=== PATIENT | male | born 1980 | race Two or more races ===

== ENCOUNTER 2018-06-22 14:26 | Emergency (ER) | payer SELFPAY ==
[2018-06-22] MEDS ORDERED: IBUPROFEN 600 MG TAB PO ONE (15:19)
--- NOTE | 2018-06-22 15:19 | EDPHY ---
H & P Stated Complaint: ongoing uti pain, seen at [facility] yesterday Time Seen by Provider: 06/22/18 15:53 HPI/ROS: CHIEF COMPLAINT: "I have pain in my penis" HISTORY OF PRESENT ILLNESS: The patient is a 38 y/o male complaining of penile pain and aching lower abdominal pain for the last few days. He went to [facility] for these symptoms yesterday and they treated him for possible prostatitis with a 10-day course of Bactrim, which he has been on for about 24 hours. They took a urine sample, but he has not received those results yet. They did not perform a rectal exam. His symptoms feel worse today and he has associated itchiness. He is able to urinate, but describes concurrent urinary urgency and hesitancy. He denies fever, vomiting, back pain, penile drainage, penile sores. No history of STDs. He is currently sexually active with his and does not use protection. He denies any new sexual partners. REVIEW OF SYSTEMS: A ten system review of systems was performed and is negative with the exception of the items mentioned in the HPI. Past medical history: Appendicitis Past surgical history: Appendectomy Family history: Noncontributory Social history: Lives in [place]. Employed. . General Appearance: Alert. Vital signs reviewed. Eyes: Pupils equal and round, no conjunctival injection, no discharge. Anicteric. ENT, Mouth: Mucous membranes are moist, no oropharyngeal erythema or edema. Neck: No lymphadenopathy, supple. Respiratory: Lungs are clear to auscultation; no wheezes, rales, or rhonchi. Cardiovascular: Regular rate and rhythm; no murmur, rub, or gallop. Gastrointestinal: Abdomen is soft and nontender, no masses or organomegaly. No inguinal hernia. : Normal uncircumcised male. Normal bilaterally descended testes, nontender. No drainage, lesions, erythema. Skin: Warm and dry, no rashes on exposed skin, normal color. Back: Nontender to palpation over the thoracolumbar spine. No CVAT. Extremities: No lower extremity edema, no calf tenderness or swelling. Neurological: Alert and oriented. Moving all four extremities easily and equally. Psychiatric: Normal affect. - Personal History Current Tetanus Diphtheria and Acellular Pertussis (TDAP): Yes - Medical/Surgical History Other PMH: denies - Social History Smoking Status: Never smoked Constitutional: Initial Vital Signs Temperature (C) 37.1 C 06/22/18 14:30 Heart Rate 66 06/22/18 14:30 Respiratory Rate 16 06/22/18 14:30 Blood Pressure 124/80 H 06/22/18 14:30 O2 Sat (%) 96 06/22/18 14:30 O2 Delivery Mode Room Air Allergies/Adverse Reactions: flu vaccine Allergy (Uncoded 06/22/18 14:29) Home Medications: Medication Instructions Recorded Lovastatin 10/11/09 Sulfamethoxazole-Tmp Ds Tablet 06/22/18 Medical Decision Making ED Course/Re-evaluation: 38 y/o male presents with a few-day history of achy lower abdominal pain and penile pain. He was evaluated at [facility] yesterday and treated for possible prostatitis with Bactrim, which he has been on for about 24 hours. It sounds like they also sent his urine for culture. He has very mild LLQ tenderness on exam and normal exam. He received 600mg PO ibuprofen administered for pain here. I agree with the treatment for infection at [facility] and recommended continuing on that course. Not sure if cultures were sent for STD. He will check with PC. I do not suspect ureterolithiasis, pyelonephritis, urinary retention, abdominal problem such as diverticulitis. UA here is negative. - Data Points Medications Given: Discontinued Medications Ibuprofen (Motrin) 600 mg PO EDNOW ONE Stop: 06/22/18 15:20 Last Admin: 06/22/18 15:22 Dose: 600 mg Departure - Departure Disposition: Home, Routine, Self-Care Clinical Impression: Prostatitis Qualifiers: Prostatitis type: acute Qualified Code(s): N41.0 - Acute prostatitis Condition: Good Instructions: Sulfamethoxazole/Trimethoprim (By mouth), Prostatitis (ED) Additional Instructions: 1. Continue taking the Bactrim (antibiotic) as prescribed. 2. Follow up at [facility] if symptoms have not improved over the next 3-4 days. 3. Follow up sooner if you develop fever, severe pain, or other worsening symptoms. Referrals: Bernarda Castillo MD [Primary Care Provider] - As per Instructions Report Scribed for: Stephanie Colin Report Scribed by: Lacy Flores Date of Report: 06/22/18 Time of Report: 15:59 Physician Review and Approval Statement: 06/22/18 15:19 Portions of this note were transcribed by the medical psychotherapist. I, Dr. Stephanie Colin, personally performed the history, physical exam, and medical decision- making; and confirmed the accuracy of the information in the transcribed note.
[2018-06-22 16:26] VITALS: BP 123/86
== END 2018-06-22 16:25 | disposition home or self-care (01) ==
DX: N42.81 Prostatodynia syndrome (principal)

== ENCOUNTER 2018-06-23 17:12 | Emergency (ER) | payer SELFPAY ==
[2018-06-23] MEDS ORDERED: AZITHROMYCIN 250 MG TAB PO ONE (17:47)
--- NOTE | 2018-06-23 17:49 | EDPHY ---
H & P Time Seen by Provider: 06/23/18 17:40 HPI/ROS: CHIEF COMPLAINT: Pain in the penis HISTORY OF PRESENT ILLNESS: Patient was seen yesterday in our ED complaining of penile pain and lower abdominal pain. He went to [facility] he has now been on Bactrim for 48 hr for possible prostatitis. He says he still has urinary urgency and hesitancy. He denies fever vomiting or penile drainage, no sores on his penis. He is but did have a partner that was not his about a week and half ago. No protection. REVIEW OF SYSTEMS: Eye: No symptoms ENT: No symptoms Cardiac: No chest pain Pulmonary: no cough or SOB Abdomen: no vomiting, diarrhea, abdominal pain Musculoskeletal: No symptoms Skin: no rash Neuro: No symptoms Constitutional: no fever : HPI A comprehensive 10 point review of systems is otherwise negative aside from elements mentioned in the history of present illness. PAST MEDICAL HISTORY: High cholesterol and appendectomy Social history: Primary care is [facility] General Appearance: Alert and conversant, cooperative. Eyes: No scleral icterus. ENT, Mouth: Normal mucous membranes. Respiratory: Normal respiratory effort, breath sounds equal, lungs are clear to auscultation. Cardiovascular: Regular rate and rhythm. Gastrointestinal: Abdomen is soft and non tender. Normal scrotum. No penile discharge. Rectal exam shows mild prostate tenderness but not significantly enlarged Neurological: Alert, face symmetric, normal motor and sensory in extremities. Skin: Patient does not have any evidence of ulceration or sores on his penis. Musculoskeletal: No peripheral edema. Psychiatric: Not agitated. Emergency Department course/MDM: Discussed testing versus treated empirically, patient would prefer to just be treated. Will treat empirically for STD with Zithromax and ceftriaxone given persistent urethritis, a urine sent for testing. Continue Bactrim and follow-up [facility] Smoking Status: Never smoked Constitutional: Initial Vital Signs Temperature (C) 36.7 C 06/23/18 17:20 Heart Rate 68 06/23/18 17:20 Respiratory Rate 16 06/23/18 17:20 Blood Pressure 142/84 H 06/23/18 17:20 O2 Sat (%) 97 06/23/18 17:20 O2 Delivery Mode Room Air Allergies/Adverse Reactions: flu vaccine Allergy (Uncoded 06/22/18 14:29) Home Medications: Medication Instructions Recorded Lovastatin 10/11/09 Sulfamethoxazole-Tmp Ds Tablet 06/22/18 MDM/Departure - MDM Medications Given: Discontinued Medications Azithromycin (Zithromax) 1,000 mg PO EDNOW ONE PRN Reason: Protocol Stop: 06/23/18 17:48 Last Admin: 06/23/18 17:54 Dose: 1,000 mg Ceftriaxone Sodium (Rocephin Im Syringe) 250 mg IM ONCE ONE PRN Reason: Protocol Stop: 06/23/18 17:48 Last Admin: 06/23/18 18:29 Dose: 250 mg - Depart Disposition: Home, Routine, Self-Care Clinical Impression: Urethritis Condition: Good Instructions: Nonspecific Urethritis in Men (ED) Additional Instructions: Call tomorrow [phone] for STD testing results. You got ceftriaxone 250mg IM and azithromycin 1gram orally tonight. [facility] the [facility] follow-up with them in the next 1-2 days. Referrals: Bernarda Castillo MD [Primary Care Provider] - As per Instructions
[2018-06-23 18:29] VITALS: BP 124/83
[2018-06-24 12:03] LABS: GC AMPLIFICATION GENPROBE NEGATIVE (NEGATIVE)
== END 2018-06-23 18:33 | disposition home or self-care (01) ==
DX: N34.2 Other urethritis (principal); E78.00 Pure hypercholesterolemia, unspecified
CPT/HCPCS: J0696